=== PATIENT | male | born 1980 | race Caucasian/White ===

== ENCOUNTER 2024-09-17 21:32 | Emergency (ER) | payer SELFPAY ==
[~2024-09-17] VITALS: Ht 172.7 cm; Wt 95.5 kg
[2024-09-17 21:44] VITALS: PULSE 89; RESP 17; O2SAT 98
--- NOTE | 2024-09-17 22:00 | Physician Documentation ---
History of Present Illness ~ Chief Complaint: Laceration Stated Complaint: CUT TOE Time Seen by MD: 21:51 Source: patient, family Mode of Arrival: POV Exam Limitations: no limitations HPI 43-year-old with complaints of laceration cutting [place] foot on [place] Patient is not up-to-date with tetanus. Medication Reconciliation Allergies: Coded Allergies: No Known Allergies (Unverified , 09/17/24) Past Medical History Past Medical History: No Pertinent History Review of Systems All Other Systems at this time: Reviewed and Negative Integumentary: Reports: see HPI Physical Exam Vital Signs: RN Vital Signs have been reviewed: Yes, Heart Rate: 89, Respiratory Rate: 17, Pulse Oximetry: 98, Weight: 95.450 Oxygen Flow Rate: 0 Physical Exam General: Alert, no apparent distress. . Respiratory: Lungs clear, no respiratory distress. Chest: No accessory muscle use. Cardiovascular: Regular rate and rhythm, no murmurs. Gastrointestinal: Soft, nontender, nondistended. Bowels sounds present. Extremities: Normal range of motion, no deformity. Irregular shaped laceration to the right great toe Neurologic: Oriented x4. Psychiatric: Normal mood and affect. Skin: Normal color, warm and dry. No edema, no ecchymosis. Procedures Laceration/Wound Repair Laceration : Location: Right 1st toe Length (cm): 2.5 Anesthesia: Lidocaine w/ Epi Volume Anesthetic (mls): 3 Prep: betadine, irrigated by physician Irrigated w/ Saline (mls): 200 Margins: flaps aligned Foreign Body: not identified Repaired: skin Wound Repaired With: sutures Suture Size/Type: 3-0, prolene Number of Superficial Sutures: 4 Layer Closure?: No Dressing Applied: simple, bacitracin Splint Applied?: No Tolerated Procedure Well?: yes, no complications Progress Results/Orders Results/Orders Orders - ARLEEN MALONEY NP Laceration/I&D Tray Set Up (09/17/24 22:01) Completed Orders - ARLEEN MALONEY NP Lidocaine 1% W/Epi 1:200,000 (Xylocaine (09/17/24 22:05) Tetanus/Pertuss/Diph Acell/Pf (Boostrix (09/17/24 22:05) Bacitracin Ointment (Bacitracin Ointment (09/17/24 22:05) Vital Signs 09/17/24 21:44 Pulse 89 Resp 17 Pulse Ox 98 O2 Flow Rate 0 Medical Decision Making Findings Cut toe on rock while talking house boat not up-to-date with tetanus requiring sutures Departure Time of Disposition: 22:47 Disposition: 01 HOME / SELF CARE / HOMELESS Impression: Primary Impression: Laceration Condition: Stable Discharge Instructions: Laceration Care, Adult, [id number] Additional Instructions: Leave bandage over sutures for 24 hours then leave open to air it is advisable not to get foot wet in the [place] due to open wound and possibility of infection. Have sutures removed in 10 days monitor for infection follow up with primary care for suture removal Referrals: NO PRIMARY CARE PROVIDER (PCP) Education Educated: Patient, Family Educated regarding: diagnosis, treatment, need for follow up Signature Scribe Signature: No scribe Attestation: The note accurately reflects work and decisions made by me.Arleen CARREON 09/17/24 22:00 ARLEEN MALONEY NP Sep 17, 2024 22:00
[2024-09-17] MEDS: bacitracin 15gm ointment TP ONE (22:55)
[2024-09-17] MEDS: TETanus/Pertussis (Acell)/Diphther VAC/PF (Tdap-Adult) 0.5ml syringe IMVAC ONE (22:56)
[2024-09-17] MEDS: LIDOcaine 1% W/epiNEPHrine 1:200,000 10ml vial IJ ONE (22:57)
== END 2024-09-17 23:03 | disposition home or self-care (01) ==
LOC: ER 21:33
DX: S91.111A Laceration without foreign body of right great toe without damage to nail, initial encounter (principal); W45.8XXA Other foreign body or object entering through skin, initial encounter; Y93.89 Activity, other specified; Y92.89 Other specified places as the place of occurrence of the external cause; Y99.8 Other external cause status
CPT/HCPCS: 12001; 90471; 90715; 99283